=== PATIENT | male | born 1990 | race Caucasian/White ===

== ENCOUNTER 2017-04-03 01:32 | Emergency (ER) | payer SELFPAY ==
[~2017-04-03] VITALS: Ht 180.3 cm; Wt 90.0 kg
[2017-04-03] MEDS ORDERED: CLON0.1T PO (01:56)
[2017-04-03] MEDS ORDERED: ONDANSETRON 2MG/ML, 2ML IVPush ONE (02:00)
[2017-04-03] MEDS ORDERED: SODIUM CHLORIDE FLUSH 10ML SYR IVF ONE (02:00)
[2017-04-03] MEDS ORDERED: SODIUM CHLORIDE 0.9% 1,000ML IVBOLUS ONE (02:00)
[2017-04-03] MEDS ORDERED: LORazepam 2 MG/ML, 1ML ONE (02:10)
[2017-04-03] MEDS ORDERED: ONDANSETRON 2MG/ML, 2ML ONE (02:10)
[2017-04-03] MEDS: LORazepam 2 MG/ML, 1ML IVPush ONE ×2 (02:15→02:18)
[2017-04-03] MEDS ORDERED: PLEASE ENTER ALLERGIES MC SCH ×2 (03:00)
[2017-04-03 05:23] VITALS: BP 116/69
== END 2017-04-03 05:43 | disposition home or self-care (01) ==
LOC: EDBD 01:32 → ED 05:30
DX: R42 Dizziness and giddiness (principal); R07.89 Other chest pain; F10.10 Alcohol abuse, uncomplicated; F12.10 Cannabis abuse, uncomplicated; Y90.0 Blood alcohol level of less than 20 mg/100 ml; I10 Essential (primary) hypertension
CPT/HCPCS: 93005; 96361; 96374; 96375; 99284; J2060; J2405; J7030